=== PATIENT | male | born 1955 | race Caucasian/White ===

== ENCOUNTER → 2016-11-27 | Outpatient (CLI) | payer BC ==
--- NOTE | 2016-11-27 16:18 | DX ---
Chest, PA and Lateral History: Cough, dyspnea, night sweats, congestion . Comparison: chest CT June 2015 Findings: There is mild bronchial wall thickening associated with interstitial lung disease. Lung vol umes are mildly prominent. There is no focal consolidation, infiltrate or pleural effusion. Heart siz e is normal. There is no pneumothorax or pneumomediastinum.>] There is a moderate T9 compression def ormity , stable since CT July 16, 2015. Impression: 1. Airways disease/ interstitial pneumonitis, possibly representing viral infection.
== END ==
LOC: FIMAGING 15:58
PROVIDERS: ATTEND Nurse Practitioner
DX: J06.9 Acute upper respiratory infection, unspecified (principal)

== ENCOUNTER → 2017-06-16 | Outpatient (CLI) | payer BC | LOC: FIMAGING 15:20 | PROVIDERS: ATTEND Psychiatry & Neurology Neurology | DX: D68.59 Other primary thrombophilia (principal); R25.9 Unspecified abnormal involuntary movements; R41.89 Other symptoms and signs involving cognitive functions and awareness ==